=== PATIENT | male | born 1990 | race Caucasian/White ===

== ENCOUNTER 2017-02-23 07:33 | Day surgery (SDC) | payer OTHER ==
[~2017-02-23] VITALS: Ht 177.8 cm; Wt 70.3 kg
[~2017-02-23 07:33] MED LIST: 0.9% Sodium Chloride 1,000 ML IV SCH; ALPR0.25 PO; HYDR-4003 PO; OMEP20CA11 PO; PRD2.5T PO; Sodium Chloride LOK Flush 10 mL Syringe IV PRN; fentaNYL-PF 50 mCg/mL 2 mL Inj IVPUSH PRN
[2017-02-23 07:52] VITALS: BP 138/86; PULSE 78; RESP 14; O2SAT 98
[2017-02-23 08:34] VITALS: BP 128/74; PULSE 75; RESP 14; O2SAT 95
[2017-02-23 08:44] VITALS: BP 124/70; PULSE 74; RESP 14; O2SAT 98
[2017-02-23 08:52] VITALS: BP 134/79; PULSE 89; RESP 16; O2SAT 99
--- NOTE | 2017-02-23 09:44 | ENDO ---
[address] [address] ENDOSCOPY PROCEDURE PATIENT: DIEUDONNE DOWNS : 1990 MR#: [id number] ADMIT: 02/23/2017 JOB ID: [id number] DATE: 02/23/2017 PROCEDURE: Esophagogastroduodenoscopy. INDICATIONS: Chronic GERD. The patient's ASA classification is 1. Mallampati score was 1. MEDICATIONS: 1. Versed 8 mg. 2. Fentanyl 125 mcg. INSTRUMENT USED: GIF H 180 J. PROCEDURE DETAILS: After informed consent was obtained, the patient was brought into the GI suite, where he was placed on oxygen via nasal cannula and monitored with continuous pulse oximeter, telemetry and blood pressure monitoring. A time-out was performed. Then, he was placed in the left lateral decubitus position and medications were administered for sedation. A bite block was placed. Standard EGD scope was inserted through the bite block and advanced under direct visualization to the second portion of the duodenum without difficulty. FINDINGS: 1. Normal appearing duodenal bulb, first and second portion. Multiple random biopsies were obtained. 2. Normal-appearing pylorus. In the antrum and body the stomach, the mucosa had a mild erythematous appearance suggestive of mild gastritis. Multiple random biopsies were obtained. 3. Retroflexed views in the gastric body revealed a normal appearing cardia and fundus. 4. The diaphragmatic hiatus was at approximately 40 cm and the GE junction was at approximately 39 cm. 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 In addition, in the distal esophagus, the mucosa was erythematous suggestive of esophagitis. IMPRESSION: 1. Mild gastritis. 2. Mild esophagitis suggestive of chronic reflux. RECOMMENDATIONS: 1. Await biopsy results. 2. Continue PPI and followup in GI clinic. COMPLICATIONS: None. ESTIMATED BLOOD LOSS: Less than 5 mL.
--- NOTE | 2017-02-24 13:49 | PATH ---
SURGICAL PATHOLOGY Attending Physician:Chetan Dye CASE STATUS: Signed Out PATIENT NAME: DIEUDONNE DOWNS PID: [id number] : 1990 DATE COLLECTED:02/23/2017 15:59 SPECIMEN: 1: Duodenum, Biopsy 2: Gastric, Biopsy 3: Esophagus, Biopsy CLINICAL HISTORY: 1. DUODENUM BX 2. GASTRIC BX 3. DISTAL ESOPHAGUS BX FINAL DIAGNOSIS: 1.DUODENUM BIOPSY: FRAGMENTS OF NORMAL-APPEARING SMALL BOWEL MUCOSA. Normal delicate mucosal villi present. Negative for significant inflammation, dysplasia and malignancy. 2.GASTRIC BIOPSIES: MILD CHRONIC GASTRITIS INVOLVING ANTRAL MUCOSA WITH FRAGMENTS OF FUNDIC MUCOSA NEGATIVE FOR SIGNIFICANT INFLAMMATION. Negative for evidence of Helicobacter. Negative for intestinal metaplasia. Negative for dysplasia and malignancy. 3.DISTAL ESOPHAGUS BIOPSY: SQUAMOUS MUCOSA AND GASTRIC CARDIA-TYPE MUCOSA NEGATIVE FOR SPECIALIZED METAPLASIA OF KUO' S-TYPE ESOPHAGUS. Negative for dysplasia and malignancy. Negative for squamous intraepithelial eosinophils. ICD10 code K29.70 GROSS DESCRIPTION: The specimen is received in three formalin filled containers labeled with the patient's name. 1). The specimen is sublabeled "duodenum" and consists of 3 portions of tissue which aggregate to 0.3 x 0.3 x 0.2 CM. The specimen is entirely submitted in cassette 1A. 2). The specimen is sublabeled "gastric" and consists of 4 portions of tissue which aggregate to 0.4 x 0.3 x 0.2 CM. The specimen is entirely submitted in cassette 2A. 3). The specimen is sublabeled "distal esophagus" and consists of a 0.3 x 0.2 x 0.2 CM portion of tissue which is entirely submitted in cassette 3A. 02/23/2017 [facility] MICRO DESCRIPTION: See diagnosis. ICD-9 CODES: CPT CODES: 1: 47183 2: 77717 3: 24395 Electronically Signed Out Pasha Costa MD [facility] Pathology [facility], [place] [address] Technical component performed at [facility], [facility] [address], [address]
== END 2017-02-23 23:59 | disposition home or self-care (01) ==
LOC: END 07:33
PROVIDERS: ATTEND Internal Medicine Gastroenterology
DX: K29.50 Unspecified chronic gastritis without bleeding (principal); K21.9 Gastro-esophageal reflux disease without esophagitis; F41.9 Anxiety disorder, unspecified
CPT/HCPCS: 43239; 99153; G0500; J7030